=== PATIENT | male | born 1935 | race Caucasian/White ===

== ENCOUNTER 2017-02-27 13:48 | Day surgery (SDC) | payer MEDICARE, OTHER ==
[~2017-02-27] VITALS: Ht 177.8 cm; Wt 75.0 kg
[~2017-02-27 13:48] MED LIST: 0.9% Sodium Chloride 1,000 ML IV SCH; ALBU8.5H2 IH; CITA20TA11 PO; DILT-17 PO; DONE10TA5 PO; FLUT16SP NS; GABA600T2 PO; HYDR-3825 PO; NAM10 PO; ONDA4TAB6 PO; Sodium Chloride LOK Flush 10 mL Syringe IV PRN; TAMS0.4C98 PO; TEMA7.5C14 PO; WARF5TAB PO; fentaNYL-PF 50 mCg/mL 2 mL Inj IVPUSH PRN
[2017-02-27 14:43] VITALS: BP 153/101; PULSE 99; RESP 16; O2SAT 98
[2017-02-27] MEDS ORDERED: ASPI325T32 PO (14:43)
[2017-02-27 16:20] VITALS: BP 163/97; PULSE 78; RESP 16; O2SAT 100
[2017-02-27 16:30] VITALS: BP 164/97; PULSE 77; RESP 16; O2SAT 99
[2017-02-27 16:40] VITALS: BP 156/97; PULSE 75; RESP 16; O2SAT 99
--- NOTE | 2017-02-27 16:46 | ENDO ---
[address] [address] ENDOSCOPY PROCEDURE PATIENT: SALOMON GONZALEZ : 1935 MR#: [id number] ADMIT: 02/27/2017 JOB ID: [id number] PROCEDURE: Esophagogastroduodenoscopy. INDICATION: Early satiety and weight loss. Patient's ASA classification is II. Mallampati score is II. INSTRUMENT USED: GIF-H180J. PROCEDURE DETAILS: After informed consent was obtained, the patient was brought into the GI suite, where he was placed on oxygen via nasal cannula and monitored with continuous pulse oximeter, telemetry, and blood pressure monitoring. A time-out was performed. Then, he was placed in a left lateral decubitus position and medications were administered for sedation. A bite block was placed. Standard EGD scope was inserted through the bite block and advanced under direct visualization to the second portion of duodenum without difficulty. FINDINGS: 1. Normal appearing duodenal bulb, first and second portion. 2. Normal appearing pylorus. 3. Normal appearing antrum. 4. In the gastric body, there was a submucosal mass, measuring approximately 2.2-3 cm, along the anterior portion of the stomach. Biopsies were not obtained. 5. Retroflexed views in the gastric body revealed a normal appearing cardia and fundus. 6. Normal appearing GE junction with a regular Z-line. 7. Normal appearing esophagus. IMPRESSION: Gastric submucosal mass. RECOMMENDATIONS: 1. Will review CT scan. The patient had prior and then may need to consider endoscopic ultrasound for further evaluation. 2. Proceed to colonoscopy. COMPLICATIONS: None. ESTIMATED BLOOD LOSS: Less than 5 mL. PROCEDURE PERFORMED: Colonoscopy. INDICATION: Weight loss. Please see above for ASA classification, Mallampati score, and medications. INSTRUMENT USED: PCF-H180AL. Prep quality was fair. PROCEDURE DETAILS: After completion of the EGD exam, the patient was turned and then a digital rectal exam was performed, which was unremarkable. The colonoscope was then inserted into the rectum and advanced under direct visualization to the cecum, which identified by the presence of the ileocecal valve and appendiceal orifice. Once the cecum was reached, the colonoscope was withdrawn back into the rectum as the mucosa and lumen were examined. In the rectum, retroflexion was performed. Following retroflexion, remaining air in the rectum was suctioned, and procedure was completed. FINDINGS: Normal exam from rectum to cecum. IMPRESSION: Normal colonoscopy. RECOMMENDATIONS: Review CT scan with Radiology and then may need to consider endoscopic ultrasound of submucosal gastric mass. COMPLICATIONS: None. ESTIMATED BLOOD LOSS: Zero.
--- NOTE | 2017-03-02 15:24 | PATH ---
SURGICAL PATHOLOGY Attending Physician:Ronna Rivera CASE STATUS: Signed Out PATIENT NAME: SALOMON GONZALEZ SR PID: [id number] : 1935 DATE COLLECTED:02/27/2017 00:00 SPECIMEN: Gastric, Biopsy CLINICAL HISTORY: 1). GASTRIC BIOPSY FINAL DIAGNOSIS: 1.GASTRIC BIOPSY: MILD CHRONIC GASTRITIS INVOLVING ANTRAL MUCOSA. Negative for evidence of Helicobacter. Negative for intestinal metaplasia. Negative for dysplasia and malignancy. ICD10 code K29.70 GROSS DESCRIPTION: Received in formalin, labeled with the patient' s name and "gastric biopsy", are two fragments of toscano, soft tissue ranging in size from 0.1 x 0.1 x 0.1 cm to 0.5 x 0.2 x 0.2 cm. All fragments are totally submitted in one cassette. ([id number]) MICRO DESCRIPTION: See diagnosis. ICD-9 CODES: CPT CODES: 1: 07072 Electronically Signed Out Ricardo Harrison MD [facility] [address], [place] [address] Technical component performed at [facility], [address] [place] [address] Ave[address], [place], [address]
[2017-03-24] MEDS ORDERED: WARF5TAB7 PO (14:59)
[2017-03-24] MEDS ORDERED: MAALOX PO (14:59)
[2017-03-24] MEDS ORDERED: WARF7.5T4 PO (14:59)
== END 2017-02-27 23:59 | disposition home or self-care (01) ==
LOC: END 13:48
PROVIDERS: ATTEND Internal Medicine Gastroenterology
DX: K29.50 Unspecified chronic gastritis without bleeding (principal); R63.4 Abnormal weight loss; R68.81 Early satiety; D64.9 Anemia, unspecified; I10 Essential (primary) hypertension; I48.91 Unspecified atrial fibrillation; K57.30 Diverticulosis of large intestine without perforation or abscess without bleeding; G30.9 Alzheimer's disease, unspecified; F02.80 Dementia in other diseases classified elsewhere, unspecified severity, without behavioral disturbance, psychotic disturbance, mood disturbance, and anxiety; N40.0 Benign prostatic hyperplasia without lower urinary tract symptoms; F32.9 Major depressive disorder, single episode, unspecified; M19.90 Unspecified osteoarthritis, unspecified site; J30.9 Allergic rhinitis, unspecified; Z86.010 Personal history of colon polyps; Z79.01 Long term (current) use of anticoagulants; Z68.23 Body mass index [BMI] 23.0-23.9, adult
CPT/HCPCS: 43239; 45378; 99153; G0500; J7030

== ENCOUNTER 2017-03-25 07:55 | Day surgery (SDC) | payer MEDICARE, OTHER ==
[~2017-03-25] VITALS: Ht 180.3 cm; Wt 74.0 kg
[~2017-03-25 07:55] MED LIST changes: -0.9% Sodium Chloride 1,000 ML IV SCH; +ASPI325T32 PO; +MAALOX PO; -Sodium Chloride LOK Flush 10 mL Syringe IV PRN; -WARF5TAB PO; +WARF5TAB7 PO; +WARF7.5T4 PO; -fentaNYL-PF 50 mCg/mL 2 mL Inj IVPUSH PRN
[2017-03-25] MEDS ORDERED: Propofol 10,000 mCg/mL 20 mL Inj ONE (07:56)
[2017-03-25] MEDS ORDERED: fentaNYL-PF 50 mCg/mL 2 mL Inj ONE (07:56)
[2017-03-25 08:13] VITALS: BP 160/90; PULSE 74; RESP 16; O2SAT 96
[2017-03-25] MEDS: Lactated Ringer's 1,000 ML IV ONE ×3 (09:10→09:41)
[2017-03-25 09:47] VITALS: BP 121/73; PULSE 70; RESP 16; O2SAT 93
--- NOTE | 2017-03-25 09:47 | PCM.HPANE ---
Patient Data Date of Service: March 25, 2017 (0845) Surgeon Admitting Provider: Attending Provider:Pat Lee MD Primary Care Physician:Ron Murphy MD Other Provider:Amrit Gamez Anesthesia Reason for Visit Gastric Mass Ht/WT & BMI Height (Feet): 5 Height (Inches): 11 Weight (Kilograms): 74 Body Mass Index 22.00 Allergies Coded Allergies: morphine (Verified Adverse Reaction, Severe, INCREASED PAIN, INSOMNIA, ) Past Anesthesia History Anesthesia History: Denies:: Abnormal Airway, Anesthesia Reactions (REACTION TO MORPHINE), Difficult Intubation, Fam Anesthesia Reaction, Fam Malignant Hypertherm, Malignant Hyperthermia Diabetes History Hx Diabetes?: No Type of Diabetes: Diet Controlled Glycemic Control: Diet Controlled MRSA MRSA: No (07/24/14 NASAL SWAB NEG.) Medications Blood Thinner: Aspirin Last Dose Blood Thinner: March 24, 2017 Home Meds Incl Beta Anthony: No Reported Medications [Maalox] No Conflict Check10 Ml PO TID PRN PRN 03/24/17 Aspirin 325 Mg Xvqcju161 Mg PO DAILY #1 BOTTLE 02/27/17 Ondansetron (Zofran)4 Mg Tablet4 Mg PO Q4H PRN For Nausea 02/26/17 Citalopram 20 Mg Dogokq17 Mg PO DAILY Ref 0 02/26/17 Fluticasone Propionate (Fluticasone Propionate Nasal)16 Gm [place].susp3 [place] NS DAILY PRN irritation #16 GM Ref 0 03/14/16 Hydrocodone-Acetaminophen 7.5-325 mg 1 Each Tablet1 Tablet PO TID PRN For Pain Ref 0 03/14/16 Tamsulosin (Flomax)0.4 Mg Capsule0.4 Mg PO DAILY 30 Days Ref 0 08/08/14 Donepezil (Aricept)10 Mg Kbzctn76 Mg PO HS 30 Days Ref 0 08/08/14 Albuterol HFA (Proair HFA)8.5 Gm Hfa.aer.ad2 Puffs IH Q4 PRN For Shortness of Breath #1 INHALER 08/08/14 Diltiazem ER 120 Mg Cap.er.31r647 Mg PO DAILY #30 CAPSULE Ref 0 08/08/14 Memantine (Namenda)10 Mg Ndkqpa32 Mg PO DAILY 30 Days Ref 0 08/08/14 Temazepam 7.5 Mg Kiuosjn11 Mg PO HS PRN For Insomnia 30 Days Ref 0 08/08/14 Gabapentin 600 Mg Qceyhp918 Mg PO HS PRN PRN 30 Days Ref 0 08/08/14 Discontinued Reported Medications Warfarin Sodium 7.5 Mg Tablet7.5 Mg PO DIRECTED 30 Days Ref 0 03/24/17 Warfarin Sodium 5 Mg Tablet5 Mg PO DIRECTED 30 Days Ref 0 03/24/17 History History of ENT Problems?: Yes HEENT History: Positive for:: Dysphagia (ongoing for awhile.) Hearing Problem Denies:: Abnormal Airway Cataracts Difficult Intubation Sinus Problem Denture Type: Full- Upper Teeth Condition: No Teeth Hx of Heart Problems?: Yes Cardiovascular History: Positive for:: Atrial Fibrillation (ON ANTICOAGULATION ASA & CARDIZEM) Irregular Heartbeat (AF SINCE 06/2012) Denies:: AICD Cardiac Surgery Chest Pain Congestive Heart Failure Edema Heart Murmur (ECHO 02/2012) Hypertension Pacemaker Valvular Heart Disease Hx of Respiratory Problem?: Yes Respiratory History: Positive for:: Asthma Dyspnea (POSADA/ORTHOPNEA) Pneumonia (HISTORY OF) Use of C-PAP Machine Denies:: COPD Chest Surgery Cough Hemoptysis Tuberculosis Hx Neurologic Problems?: Yes Neurological History: Positive for:: Alzheimer's Disease (MEMORY LOSS) Dizziness Denies:: CVA Dementia Headaches Parkinson's Disease Seizures Hx of GI Problems?: Yes Hx of Problems?: Yes Male Hx: Positive for:: Prostate Problems (S/P TURP X2) Denies:: Scrotal Mass Testicular Surgery Skin History: Denies:: History Skin Disorders? Pressure Ulcers Hx Musculoskeletal Problems?: Yes Musculoskeletal History: Positive for:: Musculoskeletal Trauma (S/P BILAT SHOULDER RPR'S, KNEE SCOPE) Denies:: Back Injury (C/OF BACK,NECK PAIN LUMBAR STENOSIS/SCOLIOSIS= CURRENT PROBLEM) Fibromyalgia Joint Replacement Hx of Psycho/Social Problems?: No Psycho Social History: Positive for:: Anxiety Hx Depression Hx Surgeries?: Yes (back, gall bladder, neck, shoulders, tonsilectomy) Hx Any Other Health Problems?: Yes Other History: Positive for:: Hospitalization Denies:: Cancer Endocrine Disease Thyroid Disease History Blood Transfusions: Denies:: Blood Transfuse Reaction Blood Transfusions Hx Diabetes: No Hx Alcohol Use: NoHx Substance Use: No Smoking Status: Former Smoker Have You Smoked inLast 12 mo: No Stop/Bang Treated for Sleep Apnea?: Yes Do You Have a CPAP Machine?: Yes AMIRAH Category 2: Yes Risk Assessment Category Category 1A: Patient has history of documented sleep apnea, and HAS NOT received any narcotic, sedative or anesthesia administration during this stay. Category 1B: Patient has history of documented sleep apnea, and HAS received any narcotic , sedative or anesthesia administration during this stay Category 2: Patient has SUSPECTED Obstructive Sleep Apnea, and HAS received any narcotic , sedative or anesthesia administration during this stay. Category 3: Patient has SUSPECTED Obstructive Sleep Apnea and HAS NOT received narcotic, sedative or anesthesia administration during this stay. Category 4: Outpatient in Procedural Areas with known sleep apnea or who screen positive for High Risk via the STOP/BANG questionnaire. Exam Exam Vital Signs Vital Signs Date Time Temp Pulse Resp B/P Pulse Ox O2 Delivery O2 Flow Rate FiO2 03/25/17 08:13 36.5 74 16 160/90 96 Room Air General Appearance: Alert, Oriented X3, Cooperative, No Acute Distress HEENT/AIRWAY: MP 2 Lungs: Clear to Auscultation Heart: Exam Unremarkable Meds/Labs/Diagnostics Admission Meds Current Medications Lactated Ringer's (Lr) 1,000 ml @ 10 mls/hr Q24H ONCE IV Last administered on 03/25/17t 09:41; Start 03/25/17 at 06:00; Stop 03/26/17 at 05:59 Plan Impression Patient chart reviewed, patient interviewed and anesthestic plan with risks, benefits, and alternatives discussed, and informed consent obtained. ASA Physical Status: ASA2 Mod Systemic Disease Anesthetic Plan: MAC Bene/Risks/Altern/Consents: Yes HP Complete Prior to Induction: Yes Bandar Robbins MD March 25, 2017 09:47
[2017-03-25 09:57] VITALS: BP 128/75; PULSE 68; RESP 16; O2SAT 95
--- NOTE | 2017-03-25 10:00 | PCM.ANEP1 ---
Post Anesthesia Phase 1 PACU Phase 1 Assessment Date of Service: March 25, 2017 (0845) Vital Signs Vital Signs Date Time Temp Pulse Resp B/P Pulse Ox O2 Delivery O2 Flow Rate FiO2 03/25/17 08:13 36.5 74 16 160/90 96 Room Air Anesthetic Administered: MAC Level of Alertness: Sleepy, easy to arouse GUERRA's with Equal Strength: Yes Pain: No Nausea or Vomiting: No Cardiovascular Function and Hy: Yes Oxygen Delivery: Room Air Lungs: Clear to Auscultation Dermatome Level: Full Sensation Complications: No Bandar Robbins MD March 25, 2017 10:00
[2017-03-25 10:07] VITALS: BP 142/71; PULSE 62; RESP 16; O2SAT 97
--- NOTE | 2017-03-25 14:47 | ENDO ---
[address] [address] ENDOSCOPY PROCEDURE PATIENT: SALOMON GONZALEZ : 1935 MR#: [id number] ADMIT: 03/25/2017 JOB ID: [id number] PROCEDURE: Esophagogastroduodenoscopy and examination under sedation. INDICATION: Submucosal gastric mass seen on prior EGD. Please seen anesthesia report for details regarding ASA classification, Mallampati score, medications. INSTRUMENTS USED: A GIFH-180J as well as a [id number] linear echoendoscope. PROCEDURE DETAILS: After informed consent was obtained, the patient was brought to the GI suite, where he was placed on oxygen via nasal cannula and monitored with continuous pulse oximeter, telemetry, and blood pressure monitoring. A time-out was performed. Then, he was placed in a left lateral decubitus position and medications were administered for sedation. A bite block was placed. The standard EGD scope was inserted through the bite block and advanced without difficulty to the second portion of the duodenum. FINDINGS: 1. Normal appearing duodenal bulb, first and second portion. 2. Normal appearing pylorus. In the antrum there was a 2-3 mm clean-based ulcer with heaped up margins. Not previously seen. Multiple biopsies were obtained. 3. The previously seen submucosal gastric mass was not appreciated on today's examination. 4. Retroflexed views in the gastric body revealed normal-appearing cardia and fundus. 5. The GE junction was at 39 cm and appeared unremarkable. 6. Normal appearing esophagus. Once the EGD exam was completed, the linear echo endoscope was then introduced through the bite block and advanced without difficulty to the second portion of the duodenum. Linear echo endoscopic images demonstrated the followin. Hyperechoic appearing pancreas suggestive of fatty pancreas. 2. The pancreatic duct was identified and appeared to be normal in course and caliber. 3. The bile duct was identified and appeared to be slightly enlarged measuring approximately 7.9 mm. 4. Normal appearing portal vein, splenic vein and splenic artery. 5. Examined portions of left lobe of liver were unremarkable. 6. Normal appearing celiac access. 7. No submucosal gastric lesions were appreciated. IMPRESSION: 1. Clean based antral ulcer. 2. Mildly dilated common bile duct consistent with patient's history of cholecystectomy. 3. Fatty appearing pancreas. RECOMMENDATIONS: 1. PPI b.i.d. 2. Repeat EGD in 8-12 weeks. COMPLICATIONS: None. ESTIMATED BLOOD LOSS: Less than 5 mL. cc: Julia Ball (unknown)
--- NOTE | 2017-03-31 10:35 | PATH ---
SURGICAL PATHOLOGY Attending Physician:Ronna Rivera CASE STATUS: Signed Out PATIENT NAME: SALOMON GONZALEZ SR PID: [id number] : 1935 DATE COLLECTED:03/25/2017 16:53 SPECIMEN: Stomach, Antrum, Biopsy CLINICAL HISTORY: 1. ANTRUM ULCER BIOPSY FINAL DIAGNOSIS: 1.ANTRUM ULCER BIOPSY: REACTIVE GASTROPATHY WITH EROSION. Negative for Helicobacter organisms by immunohistochemical stains. Negative for intestinal metaplasia. Negative for dysplasia and malignancy. ICD10 K29.70 GROSS DESCRIPTION: The specimen is received in one formalin filled container labeled with the patient's name, sublabeled "antrum ulcer" and consists of 2 portions of tissue which aggregate to 0.3 x 0.3 x 0.2 CM. The specimen is entirely submitted in one cassette. 03/25/2017 DAC MICRO DESCRIPTION: Sections are of gastric antral mucosa with reactive gastropathy changes and fibrinopurulent exudate consistent with erosion. No intestinal metaplasia is identified. No Helicobacter organisms are identified on H&E stains. Immunohistochemical stains are performed to further evaluate for the presence of Helicobacter organisms. The patient tissue is stained with monoclonal antibody to Helicobacter pylori (SP48). Positive and negative controls stain appropriately. Result: The patient tissue is negative for Helicobacter staining. Interpretation: The gastric mucosa is negative for Helicobacter pylori by immunohistochemical stains. This test was developed and its performance characteristics determined by [facility]. It has not been cleared or approved by the U. S. Food and Drug Administration. The FDA has determined that such clearance or approval is not necessary. This test is used for clinical purposes. It should not be regarded as investigational or for research. ICD-9 CODES: CPT CODES: 1: 71944, 65333 Electronically Signed Out Tsering Monroy MD [facility] [address], [place] [address] Technical component performed at [facility], [facility] [address], [place], [address]
== END 2017-03-25 23:59 | disposition home or self-care (01) ==
LOC: END 07:55
PROVIDERS: ATTEND Internal Medicine Gastroenterology
DX: K29.70 Gastritis, unspecified, without bleeding (principal); K31.9 Disease of stomach and duodenum, unspecified; K22.10 Ulcer of esophagus without bleeding; I48.91 Unspecified atrial fibrillation; E11.9 Type 2 diabetes mellitus without complications; F32.9 Major depressive disorder, single episode, unspecified; J45.909 Unspecified asthma, uncomplicated; D64.9 Anemia, unspecified; G30.9 Alzheimer's disease, unspecified; F02.80 Dementia in other diseases classified elsewhere, unspecified severity, without behavioral disturbance, psychotic disturbance, mood disturbance, and anxiety; M48.06 Spinal stenosis, lumbar region; Z86.010 Personal history of colon polyps; Z79.01 Long term (current) use of anticoagulants; Z79.82 Long term (current) use of aspirin; Z87.891 Personal history of nicotine dependence
CPT/HCPCS: 43237; 43239; J3010; J7120

== ENCOUNTER 2017-05-14 09:05 | Day surgery (SDC) | payer MEDICARE, OTHER ==
[~2017-05-14] VITALS: Ht 170.2 cm; Wt 80.0 kg
[~2017-05-14 09:05] MED LIST changes: -CITA20TA11 PO; +EXCEDRIN EXTRA STR PO; -HYDR-3825 PO; +Lactated Ringer's 1,000 ML IV ONE; -MAALOX PO; +OMEP40CA36 PO; -TEMA7.5C14 PO; -WARF5TAB7 PO; -WARF7.5T4 PO
[2017-05-14] MEDS ORDERED: Propofol 10,000 mCg/mL 20 mL Inj ONE (09:06)
[2017-05-14 09:58] VITALS: BP 140/75; PULSE 75; RESP 16; O2SAT 100
--- NOTE | 2017-05-14 10:21 | PCM.HPANE ---
Patient Data Surgeon Admitting Provider: Attending Provider:Pat Lee MD Primary Care Physician:Ron Murphy MD Other Provider:Amrit Gamez Anesthesia Reason for Visit Antral Ulcer Ht/WT & BMI Body Mass Index Allergies Coded Allergies: morphine (Verified Adverse Reaction, Severe, INCREASED PAIN, INSOMNIA, ) Past Anesthesia History Anesthesia History: Denies:: Abnormal Airway, Anesthesia Reactions (REACTION TO MORPHINE), Difficult Intubation, Fam Anesthesia Reaction, Fam Malignant Hypertherm, Malignant Hyperthermia Diabetes History Hx Diabetes?: No Type of Diabetes: Diet Controlled Glycemic Control: Diet Controlled MRSA MRSA: No (07/24/14 NASAL SWAB NEG.) Medications Blood Thinner: Aspirin Reported Medications Omeprazole 40 Mg Capsule.dr40 Mg PO BID Ref 0 05/13/17 [Excedrin Extra Str] No Conflict Check1 Tab PO DAILY PRN For Pain 05/13/17 Aspirin 325 Mg Lvmfbf742 Mg PO DAILY #1 BOTTLE 02/27/17 Ondansetron (Zofran)4 Mg Tablet4 Mg PO Q4H PRN For Nausea 02/26/17 Fluticasone Propionate (Fluticasone Propionate Nasal)16 Gm [place].susp2 [place] NS DAILY PRN irritation #16 GM Ref 0 03/14/16 Tamsulosin (Flomax)0.4 Mg Capsule0.4 Mg PO DAILY 30 Days Ref 0 08/08/14 Donepezil (Aricept)10 Mg Bvcwju09 Mg PO HS 30 Days Ref 0 08/08/14 Albuterol HFA (Proair HFA)8.5 Gm Hfa.aer.ad2 Puffs IH Q4 PRN For Shortness of Breath #1 INHALER 08/08/14 Diltiazem ER 120 Mg Cap.er.65z276 Mg PO DAILY #30 CAPSULE Ref 0 08/08/14 Memantine (Namenda)10 Mg Dcmsvm99 Mg PO DAILY 30 Days Ref 0 08/08/14 Gabapentin 600 Mg Qysglx060 Mg PO HS 30 Days Ref 0 08/08/14 Discontinued Reported Medications [Maalox] No Conflict Check10 Ml PO TID PRN PRN 03/24/17 Citalopram 20 Mg Ynjeic63 Mg PO DAILY Ref 0 02/26/17 Hydrocodone-Acetaminophen 7.5-325 mg 1 Each Tablet1 Tablet PO TID PRN For Pain Ref 0 03/14/16 Temazepam 7.5 Mg Nrezlxl34 Mg PO HS PRN For Insomnia 30 Days Ref 0 08/08/14 History History of ENT Problems?: Yes HEENT History: Positive for:: Dysphagia (ongoing for awhile.) Hearing Problem Denies:: Abnormal Airway Cataracts Difficult Intubation Sinus Problem Denture Type: Full- Upper Teeth Condition: Within Normal Limits Other History/Comment full uppers and implants on the lower jaw Hx of Heart Problems?: Yes Cardiovascular History: Positive for:: Atrial Fibrillation (ON ANTICOAGULATION ASA & CARDIZEM) Irregular Heartbeat (AF SINCE 06/2012) Denies:: AICD Cardiac Surgery Chest Pain Congestive Heart Failure Edema Heart Murmur (ECHO 02/2012) Hypertension Pacemaker Valvular Heart Disease Hx of Respiratory Problem?: Yes Respiratory History: Positive for:: Asthma Dyspnea (POSADA/ORTHOPNEA) Pneumonia (HISTORY OF) Use of C-PAP Machine Denies:: COPD Chest Surgery Cough Hemoptysis Tuberculosis Other History/Comment Pulmonary ROS negative, non compliant with CPAP Hx Neurologic Problems?: Yes Neurological History: Positive for:: Alzheimer's Disease (MEMORY LOSS) Dizziness Denies:: CVA Dementia Headaches Parkinson's Disease Seizures Hx of GI Problems?: Yes Other History/Comment history of gastric ulcer Hx of Problems?: Yes Male Hx: Positive for:: Prostate Problems (S/P TURP X2) Denies:: Scrotal Mass Testicular Surgery Skin History: Denies:: History Skin Disorders? Pressure Ulcers Hx Musculoskeletal Problems?: Yes Musculoskeletal History: Positive for:: Musculoskeletal Trauma (S/P BILAT SHOULDER RPR'S, KNEE SCOPE) Denies:: Back Injury (C/OF BACK,NECK PAIN LUMBAR STENOSIS/SCOLIOSIS= CURRENT PROBLEM) Joint Replacement Hx of Psycho/Social Problems?: No Psycho Social History: Positive for:: Anxiety Hx Depression Hx Surgeries?: Yes (back, gall bladder, neck, shoulders, tonsilectomy) Hx Any Other Health Problems?: Yes Other History: Positive for:: Hospitalization Denies:: Cancer Endocrine Disease Thyroid Disease History Blood Transfusions: Denies:: Blood Transfuse Reaction Blood Transfusions Hx Diabetes: No Hx Alcohol Use: NoHx Substance Use: No Smoking Status: Former Smoker Have You Smoked inLast 12 mo: No Stop/Bang Treated for Sleep Apnea?: Yes Do You Have a CPAP Machine?: Yes Risk Assessment Category Category 1A: Patient has history of documented sleep apnea, and HAS NOT received any narcotic, sedative or anesthesia administration during this stay. Category 1B: Patient has history of documented sleep apnea, and HAS received any narcotic , sedative or anesthesia administration during this stay Category 2: Patient has SUSPECTED Obstructive Sleep Apnea, and HAS received any narcotic , sedative or anesthesia administration during this stay. Category 3: Patient has SUSPECTED Obstructive Sleep Apnea and HAS NOT received narcotic, sedative or anesthesia administration during this stay. Category 4: Outpatient in Procedural Areas with known sleep apnea or who screen positive for High Risk via the STOP/BANG questionnaire. Exam Exam General Appearance: Alert, Oriented X3, Cooperative, No Acute Distress HEENT/AIRWAY: MP 2 Lungs: Clear to Auscultation, Normal Air Movement Heart: Exam Unremarkable, Regular Rate/Rhythm, No Murmurs/Rubs/Gallops Plan Impression Patient chart reviewed, patient interviewed and anesthestic plan with risks, benefits, and alternatives discussed, and informed consent obtained. ASA Physical Status: ASA3 Severe Disease Anesthetic Plan: TIVA Bene/Risks/Altern/Consents: Yes HP Complete Prior to Induction: Yes Roberto Castillo MD May 14, 2017 10:21
[2017-05-14 10:42] VITALS: BP 108/67; PULSE 84; RESP 16; O2SAT 97
--- NOTE | 2017-05-14 10:45 | PCM.ANEP1 ---
Post Anesthesia PACU Phase 1 Assessment Vital Signs Vital Signs Date Time Temp Pulse Resp B/P Pulse Ox O2 Delivery O2 Flow Rate FiO2 05/14/17 10:42 84 16 108/67 97 Room Air Anesthetic Administered: TIVA Level of Alertness: Awake, talking GUERRA's with Equal Strength: Yes Pain: No Nausea or Vomiting: No CV Function & Hydration Stable: Yes Airway Device: Oxygen Delivery: Nasal Cannula Lungs: Clear to Auscultation, Normal Air Movement PACU Phase 2 Assessment Complications: No Follow up Care: No Patient Instructions Provided: N/A Roberto Castillo MD May 14, 2017 10:45
[2017-05-14 10:53] VITALS: BP 116/71; PULSE 89; RESP 14; O2SAT 98
[2017-05-14 10:57] VITALS: BP 123/83; PULSE 86; RESP 16; O2SAT 96
--- NOTE | 2017-05-14 11:33 | ENDO ---
[address] [address] ENDOSCOPY PROCEDURE PATIENT: SALOMON GONZALEZ : 1935 MR#: [id number] ADMIT: 05/14/2017 JOB ID: [id number] DATE: 05/14/2017 PROCEDURE: Esophagogastroduodenoscopy. INDICATION: The patient with a history of an antral ulcer as well as a submucosal gastric mass that was not appreciated on previous EGDs or cross-sectional imaging. Please see Dr. Murphy Castillo's anesthesia report for details regarding ASA classification, Mallampati score and medications. INSTRUMENT USED: GIFH 180 J. PROCEDURE DETAILS: After informed consent was obtained, the patient was brought into the GI suite, where he was placed on oxygen via nasal cannula and monitored with continuous pulse oximeter, telemetry and blood pressure monitoring. A time-out was performed. Then, he was placed in the left lateral decubitus position and medications were administered for sedation. A bite block was placed. The standard EGD scope was inserted through the bite block and advanced under direct visualization to the second portion of the duodenum without difficulty. FINDINGS: 1. In the duodenal bulb, there were scattered whitish plaques. Not previously seen on prior endoscopy. Plaques were biopsied. 2. Normal appearing pylorus, antrum and gastric body. 3. Retroflexed views in the gastric body revealed a normal-appearing cardia and fundus. 4. The previously seen antral ulcer was not appreciated on today's examination. 5. Normal appearing GE junction with a regular Z-line at 40 cm. 6. Normal appearing esophagus. IMPRESSION: Scattered whitish plaques in the duodenal bulb. Otherwise normal examination to second portion of duodenum. RECOMMENDATIONS: 1. Await biopsy results. 2. Can discontinue PPI daily and take PPI as needed. 3. Avoid NSAIDs, if able. COMPLICATIONS: None. ESTIMATED BLOOD LOSS: Less than 5 mL.
--- NOTE | 2017-05-21 09:30 | PATH ---
SURGICAL PATHOLOGY Attending Physician:Ronna Rivera CASE STATUS: Signed Out PATIENT NAME: SALOMON GONZALEZ SR PID: [id number] : 1935 DATE COLLECTED:05/14/2017 15:30 SPECIMEN: Duodenum, Biopsy CLINICAL HISTORY: 1. DUODENAL BX PLAQUE FINAL DIAGNOSIS: Duodenal Biopsy: Duodenal mucosa with no diagnostic abnormality. Negative for active inflammation, features of sprue, dysplasia or malignancy. ICD10: K29.70 GROSS DESCRIPTION: The specimen is received in formalin, labeled with the patient's name, sublabeled as duodenal Bx, and consists of multiple fragments of toscano glistening semitranslucent tissue (0.6 x 0.2 x 0.1 cm in aggregate). Section code: (A) tissue. Specimen entirely submitted. 05/14/17 ICD-9 CODES: CPT CODES: 1: 73663 Electronically Signed Out Kristin Cosme MD [facility] [address], [place] [address] Technical component performed at [facility], [facility] [address], [place], [address]
== END 2017-05-14 23:59 | disposition home or self-care (01) ==
LOC: END 09:05
PROVIDERS: ATTEND Internal Medicine Gastroenterology
DX: Z09 Encounter for follow-up examination after completed treatment for conditions other than malignant neoplasm (principal); Z87.11 Personal history of peptic ulcer disease; G30.9 Alzheimer's disease, unspecified; F02.80 Dementia in other diseases classified elsewhere, unspecified severity, without behavioral disturbance, psychotic disturbance, mood disturbance, and anxiety; I48.91 Unspecified atrial fibrillation; F32.9 Major depressive disorder, single episode, unspecified; Z86.010 Personal history of colon polyps; Z87.891 Personal history of nicotine dependence; Z79.82 Long term (current) use of aspirin
CPT/HCPCS: 43239; 88305; J7120